=== PATIENT | female | born 1950 | race Caucasian/White ===

== ENCOUNTER 2018-05-10 13:18 | Emergency (ER) | payer MEDICARE, OTHER ==
[2018-05-10] MEDS: ACETAMINOPHEN 325 MG TAB PO ×2 (14:15→14:17)
[2018-05-10] MEDS: DIPHTH/TET/ACEL PERTUSS (ADULT) 0.5 ML VIAL IM* (14:16)
[2018-05-10] MEDS: CEPHALEXIN 500 MG CAP PO (16:31)
== END 2018-05-10 17:08 | disposition home or self-care (01) ==
LOC: FTE 13:18
DX: S02.2XXA Fracture of nasal bones, initial encounter for closed fracture (principal); R07.9 Chest pain, unspecified; W01.0XXA Fall on same level from slipping, tripping and stumbling without subsequent striking against object, initial encounter; Y92.9 Unspecified place or not applicable; Z23 Encounter for immunization
CPT/HCPCS: 12011; 70450; 70486; 71045; 72040; 90471; 90715; 93005; 99285-25